=== PATIENT | male | born 1965 | race Caucasian/White ===

== ENCOUNTER 2018-09-09 07:34 | Outpatient (CLI) | payer BC ==
[2018-09-09] VITALS (21 sets, daily range): BP systolic 142–191; BP diastolic 83–102
[~2018-09-09 07:34] MED LIST: CYCL-1 PO; HYDR-4383 PO
== END 2018-09-09 23:59 | disposition home or self-care (01) ==
LOC: CARD DIAG 07:34
PROVIDERS: ATTEND Internal Medicine Cardiovascular Disease
DX: R55 Syncope and collapse (principal); F17.200 Nicotine dependence, unspecified, uncomplicated
CPT/HCPCS: 93660

== ENCOUNTER 2019-08-26 22:00 | Emergency (ER) | payer BC ==
[~2019-08-26] VITALS: Ht 180.3 cm; Wt 90.9 kg
[~2019-08-26 22:00] MED LIST changes: +BUDE3CAP8 PO; +CETI-90 PO; -CYCL-1 PO; +FLEC50TA28 PO; -HYDR-4383 PO; +LOSA50TA64 PO; +METO25TA6 PO; +MULT-687 PO; +NICO-631 TD; +PANT-47 PO; +SIME125C43 PO
--- NOTE | 2019-08-26 22:10 | NUR ---
Asked pt for urine sample. He stated he could not void yet.
[2019-08-26] MEDS ORDERED: normal saline 1000ML IV soln IVB ONE (22:15)
[2019-08-26] MEDS ORDERED: PANT-47 PO (22:25)
[2019-08-26] MEDS ORDERED: pantoprazole 40 MG vial IV ONE (22:30)
[2019-08-26] MEDS ORDERED: calcium chloride inj. 1,000 MG in normal saline 100ml IV soln 100 ML IV ONE (22:30)
[2019-08-26 22:41] LABS: BASOPHILS % (AUTO) 0.4 % (0-1); EOSINOPHILS # (AUTO) 0.1 X10'3 (0-0.9); EOSINOPHILS % (AUTO) 0.8 % (0-6); HEMOGLOBIN 8.3 g/dl (14.0-17.9); LYMPHOCYTES # (AUTO) 1.6 X10'3 (1.1-4.8); MEAN CORPUSCULAR HEMOGLOBIN 34.5 PG (27.0-31.0); MEAN CORPUSCULAR HGB CONC 34.6 g/dL (33.0-36.5); MEAN CORPUSCULAR VOLUME 99.9 FL (78-98); MEAN PLATELET VOLUME 6.6 FL (7.4-10.4); MONOCYTES # (AUTO) 0.7 X10'3 (0-0.9); MONOCYTES % (AUTO) 6.1 % (2-12); NEUTROPHILS % (AUTO) 78.7 % (42-75); PLATELET COUNT 373 X10'3 (140-440); WHITE BLOOD COUNT 11.4 X10'3 (4.5-11.0)
[2019-08-26] MEDS ORDERED: CefTRIAXone/D5W-Rocephin 1gm 50 ML IV ONE (22:50)
[2019-08-26 22:56] LABS: ALANINE AMINOTRANSFERASE 29 U/L (12-78); ALBUMIN 3.2 G/DL (3.4-5.0); ALBUMIN/GLOBULIN RATIO 1.1 (1.1-1.5); ALKALINE PHOSPHATASE 59 IU/L (46-116); ANION GAP 8 (8-16); ASPARTATE AMINO TRANSFERASE 23 U/L (10-37); BILIRUBIN,TOTAL 0.2 MG/DL (0.1-1.0); BLOOD UREA NITROGEN 8 MG/DL (7-18); BUN/CREATININE RATIO 6.5 (5.4-32.0); CALCIUM 7.7 MG/DL (8.5-10.1); CHLORIDE 99 MMOL/L (99-107); CREATININE 1.23 MG/DL (0.60-1.10); GLUCOSE 63 MG/DL (70-104); SODIUM 131 MMOL/L (135-145); TOTAL CARBON DIOXIDE 24.5 MMOL/L (24-32); eGFR 62 ML/MIN
[2019-08-27 00:25] LABS: CLARITY,URINE CLEAR (Clear); COLOR,URINE YELLOW (Yellow); GLUCOSE, URINE NEGATIVE (Neg); KETONES,URINE NEGATIVE (Neg); LEUKOCYTE ESTERASE ,URINE NEGATIVE (Neg); NITRITES, URINE NEGATIVE (Neg); OCCULT BLOOD,URINE NEGATIVE (Neg); PROTEIN,URINE NEGATIVE (Neg); UA COLLECTION TYPE URINAL; UROBILINOGEN,URINE 0.2 E.U/dL (0.2-1.0)
[2019-08-27 02:11] VITALS: BP 106/55
== END 2019-08-27 02:33 | disposition home or self-care (01) ==
LOC: ER 22:01
DX: T50.905A Adverse effect of unspecified drugs, medicaments and biological substances, initial encounter (principal); I95.9 Hypotension, unspecified; I48.91 Unspecified atrial fibrillation; Z98.890 Other specified postprocedural states; Z72.89 Other problems related to lifestyle; Z88.8 Allergy status to other drugs, medicaments and biological substances; Z79.899 Other long term (current) drug therapy; Y92.89 Other specified places as the place of occurrence of the external cause
CPT/HCPCS: 36415; 71045; 80053; 81003; 83605; 84145; 84484; 85025; 86885; 86900; 86901; 87040; 93005; 96365; 96368; 96375; 99285; C9113; J0696; J7030; 96361

== ENCOUNTER 2021-05-18 13:04 | Emergency (ER) | payer BC ==
[~2021-05-18] VITALS: Ht 180.3 cm; Wt 98.6 kg
[~2021-05-18 13:04] MED LIST changes: +ASPI-1071 PO; -BUDE3CAP8 PO; -CETI-90 PO; +LOP25T PO; -METO25TA6 PO; -MULT-687 PO; -NICO-631 TD; -PANT-47 PO; -SIME125C43 PO
[2021-05-18 13:44] VITALS: BP 123/71
== END 2021-05-18 14:59 | disposition home or self-care (01) ==
LOC: ER 13:05
DX: M66.0 Rupture of popliteal cyst (principal); M79.661 Pain in right lower leg; R22.41 Localized swelling, mass and lump, right lower limb; I48.91 Unspecified atrial fibrillation; I10 Essential (primary) hypertension; Z72.89 Other problems related to lifestyle; Z88.5 Allergy status to narcotic agent; Z79.82 Long term (current) use of aspirin; Z79.899 Other long term (current) drug therapy
CPT/HCPCS: 93971; 99284